=== PATIENT | female | born 1995 | race Caucasian/White ===

== ENCOUNTER 2017-01-05 15:35 | Emergency (ER) | payer OTHER ==
[~2017-01-05] VITALS: Ht 162.6 cm; Wt 65.9 kg
[2017-01-05] VITALS (7 sets, daily range): BP systolic 111–116; BP diastolic 65–95; PULSE 76–92; RESP 16–28; O2SAT 97–99
--- NOTE | 2017-01-05 15:25 | NUR ---
[facility] ADMIT/TRANSFER PT WAS ADMITTED BY EDUARDO Polanco RN TO [facility], IV STARTED, AND ASSESSMENT WAS DONE. ASSUMED CARE OF PT AT 1445 WHEN BROTHER IN LAW CALLED US IN BECAUSE PT WAS SEIZING. DR JACOBS NOTIFIED AND PT WAS GIVEN ATIVAN 2MG IV AND THEN TRANSFERRED TO ED. IN LAW AT BEDSIDE. VS REMAINED STABLE THROUGHOUT OFF AND ON SEIZURES. Addendum: 01/05/17 at 1757 by JOSE LUIS MONTALVO RN ABOVE SCENARIO OCCURRED PRIOR TO PT HAVING TILT TABLE
--- NOTE | 2017-01-05 15:30 | DRSVH ---
[facility] [address] [place] [address] Echocardiogram Report Name: YADY FRANCES LStudy Date: 01/05/2017 Height: 65 in Hospital Exam Location: [facility] Weight: 165 lb Gender: Female BSA: 1.8 m2 : 1995 Age: 21 yrs BP: 115/92 mmHg Reason For Study: TACHYCARDIA Ordering Physician: Performed By: [facility] Interpretation Summary The left ventricle is normal in size. Left ventricular systolic function is normal without focal wall motion abnormalities. The ejection fraction is estimated to be 60-65%. Assessment of diastolic parameters indicates normal left ventricular diastolic function and normal filling pressures. The right ventricle is normal in size and function. The left atrial size is normal. Right atrial size is normal. There is no significant valvular heart disease. The aortic root is normal size. Procedure: A two-dimensional transthoracic echocardiogram with color flow and Doppler was performed. The study quality was technically good. There is no prior echocardiogram noted for this patient. The patient was in normal sinus rhythm during the exam. The patient was in a tachycardic rhythm during the exam. Left Ventricle: The left ventricle is normal in size. There is normal left ventricular wall thickness. Left ventricular systolic function is normal without focal wall motion abnormalities. The ejection fraction is estimated to be 60-65%. Assessment of diastolic parameters indicates normal left ventricular diastolic function and normal filling pressures. Right Ventricle: The right ventricle is normal in size and function. Atria: The left atrial size is normal. Right atrial size is normal. The interatrial septum is intact with no evidence for an atrial septal defect. Mitral Valve: The mitral valve is normal in structure and function. There is no mitral valve stenosis. There is trace mitral regurgitation. Aortic Valve: The aortic valve is normal in structure and function. There is no aortic valve stenosis. No aortic regurgitation is present. Tricuspid Valve: The tricuspid valve is normal in structure and function. There is trace tricuspid regurgitation. Pulmonic Valve: The pulmonic valve is normal in structure and function. There is trace pulmonic regurgitation. There is no significant valvular heart disease. Great Vessels: The aortic root is normal size. The dimensions of the ascending aorta are normal. The pulmonary artery is normal size. The IVC is of normal diameter and collapses greater than 50% with a sniff. This suggests a low right atrial pressure of 3 mm Hg. Pericardium/ Pleura There is no pericardial effusion. There is no pleural effusion. MMode/2D Measurements & Calculations LVIDd: 4.2 cm RA long axis LVOT diam LVIDs: 2.9 cm LA A2 area: 14.4 cm FS: 31.6 % LA A4 area: 12.6 cm RA area AoV Opening EPSS: 0.74 cm LA length (vol): 4.4 cm IVSd: 0.79 cm LA vol: 34.9 ml : 11.6 cm Ao root diam LVPWd: 0.84 cm LA vol index RA vol : 27.6 ml asc Aorta RA Diam: 2.4 cm IVC diam: 1.1 cm : 15.1 mm/ RVDd major : 6.0 cm LV carney. diameter/BSA LV sys. diameter/BSA RVD1 (basal) RVD2 (mid) (cm/m^2): 2.3 (cm/m^2): 1.6 : 2.0 cm TAPSE: 3.1 cm Doppler Measurements & Calculations Ao V2 max MV E max germán MV E/A: 1.0 PA V2 max : 123.8 cm/sec : 66.1 cm/sec Med Peak E' Germán : 66.9 cm/sec Ao max PG MV A max germán PA mean PG : 6.1 mmHg : 66.1 cm/sec E/E' med: 6.7 : 0.82 mmHg Ao mean PG MV P1/2t: 64.5 msec Lat Peak E' Germán PA Accel Time : 0.14 sec LVOT Max Germán E/E' lat: 5.2 : 82.7 cm/sec E/e' average: 6.0 SIMON(I,D): 2.3 cm sev ratio MV dec time MV P1/2t max germán Ao V2 mean LV V1 max PG : 0.22 sec : 73.5 cm/sec Ao V2 VTI: 19.6 cm LV V1 VTI MVA(P1/2t): 3.4 cm2 : 14.1 cm SIMON(V,D): 2.1 cm2 PA V2 mean SIMON indexed to BSA : 40.9 cm/sec (cm^2/m^2): 1.3 Reading Physician:PERCY
[~2017-01-05 15:35] MED LIST: 0.9% Sodium Chloride 500 ML ONE; ALBU8.5H2 INHALATION; Atropine 1 mg/10 mL (Code) Syringe ONE; PROP60CA2 PO
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
[2017-01-05] MEDS ORDERED: 0.9% Sodium Chloride 1,000 ML IV ONE (16:16)
== END 2017-01-05 17:28 | disposition left against medical advice (07) ==
LOC: EDSTATUS 15:35 → SED 15:35
DX: R25.1 Tremor, unspecified (principal); R51 Headache; I49.8 Other specified cardiac arrhythmias; J45.909 Unspecified asthma, uncomplicated; F17.210 Nicotine dependence, cigarettes, uncomplicated; F12.10 Cannabis abuse, uncomplicated; Z86.69 Personal history of other diseases of the nervous system and sense organs; Z79.51 Long term (current) use of inhaled steroids; Z88.8 Allergy status to other drugs, medicaments and biological substances
CPT/HCPCS: 96361; 96374; 99284; C8929; J1885; J2060; J7030; J7040